=== PATIENT | male | born 1955 | race Caucasian/White ===

== ENCOUNTER 2018-11-08 21:55 | Inpatient (IN) ==
--- NOTE | 2018-11-09 00:09 | Internal Med History&Physical ---
<Freeman Chicas - Last Filed: 11/09/18 02:34> Date of Encounter: 11/09/18 Time of Encounter: 00:08 Internal Medicine - H&P: HPI Chief complaint: Left shoulder pain Admitted From: Intrahospital Transfer ([facility]) History of present illness: Mr. Lehman is a 63 year old [facility] patient with a past medical history of CAD status post 5 cardiac stents placed at [facility], COPD, CVA without residual deficits, hypertension, hyperlipidemia, and current tobacco dependence who presented to [facility] emergency room complaining of left-sided shoulder and arm pain. Patient describes difficulty bending his left arm secondary to pain. Vital signs revealed highest documented blood pressure 196/88, pulse 68, and EKG revealed mild [address] elevations in anterior septal leads V1 and V2 with preceding Q waves indicating old AL. Patient already took Aspirin 81 mg, Aggrenox, metoprolol, and Plavix at home prior to arrival to [facility]. Patient was treated with 1 inch nitroglycerin paste, Aspirin 162 mg 1, Hydralazine 10 mg IV 1, morphine 2 mg IV 1 and Zofran 4 mg IV 1, and was started on nitroglycerin drip prior to transfer to [facility]. Labs at [facility] revealed a CBC 7.3, hemoglobin 14.1, hematocrit 42.2, platelet count 215, sodium 140, potassium 1.5, chloride 103, CO2 29, BUN 14, creatinine 1.14, glucose 290, calcium 8.7, total bilirubin 0.03, albumin 3.6, PT 11.6, INR 0.99, and troponin level < 0.056. Chest x-ray revealed no acute pathology. Past Med Surg Social Fam HX - Past Medical History Medical history: COPD, coronary artery disease, CVA (4), diabetes, hyperlipidemia, hypertension, myocardial infarction, other Additional medical history: Spinal stimulator in place for sciatica - Past Surgical History Surgical History: angioplasty/stent (Cardiac stents 5), sinus surgery, tonsilectomy, other (Spinal stimulator) - Social History Smoking Status: Current every day smoker Packs per day: 3 Smokeless Tobacco Status: No Alcohol use: none Drug use: none Current living situation: Home, With Family - Family History Mother Living Status: Hx Family Cardiac Disorders: Yes (CAD, hypertension) Father Hx Family Cancer: Yes (Bone) Hx Family Endocrine Disorder: Yes ("Low blood sugars") Internal Medicine - H&P: Meds Albuterol Neb [Proventil Neb] 2.5 mg IH Q4HR PRN 08/09/17 [History] Aspirin 325 mg PO DAILY 08/09/17 [History] Aspirin/Dipyridamole [Aggrenox 25 mg-200 mg Capsule] 1 tab PO BID 08/09/17 [History] Atorvastatin Calcium [Lipitor] 40 mg PO HS 08/09/17 [History] Budesonide/Formoterol 160/4.5 [Symbicort 160/4.5] 2 puff IH BIDR 08/09/17 [History] Celecoxib [Celebrex] 200 mg PO BID 08/09/17 [History] Cetirizine HCl [All Day Allergy] 10 mg PO DAILY 08/09/17 [History] Clindamycin [Cleocin] 150 mg PO Q6HR #7 capsule 08/09/17 [Rx] Cyclobenzaprine [Flexeril] 10 mg PO BID PRN 08/09/17 [History] Docusate Sodium [Colace] 200 mg PO BID 08/09/17 [History] Ibuprofen [Motrin] 600 mg PO Q8HR #20 tab 08/09/17 [Rx] Insulin Glargine,Hum.rec.anlog [Lantus Solostar] 35 unit SQ BID 08/09/17 [History] Ipratropium [Atrovent Inhaler] 2 puff IH DAILY 08/09/17 [History] Lisinopril 2.5 mg PO DAILY 08/09/17 [History] Metformin HCl [Glucophage] 1,000 mg PO BID 08/09/17 [History] Metoclopramide [Reglan] 10 mg PO Q6HR 08/09/17 [History] Metoprolol XL (24 HR) Succ [Toprol XL] 25 mg PO DAILY 08/09/17 [History] NIFEdipine XL (24 HR) [Procardia XL] 30 mg PO DAILY 08/09/17 [History] Niacin [Niacor] 500 mg PO DAILY 08/09/17 [History] Omeprazole [PriLOSEC] 20 mg PO DAILY 08/09/17 [History] OxyCODONE Immed Rel [Roxicodone 5 MG] 5 mg PO Q4HR PRN #24 tablet 08/09/17 [Rx] Polyethylene Glycol 3350 [MiraLAX] 17 gm PO DAILY PRN 08/09/17 [History] Pregabalin [Lyrica] 100 mg PO BID 08/09/17 [History] SUMAtriptan Succinate [Imitrex] 100 mg PO AD PRN 08/09/17 [History] Saxagliptin HCl [Onglyza] 5 mg PO DAILY 08/09/17 [History] Tamsulosin [Flomax] 0.4 mg PO DAILY 08/09/17 [History] Topiramate [Topamax] 50 mg PO DAILY 08/09/17 [History] Allergy/AdvReac Type Severity Reaction Status Date / Time Varenicline [From Chantix] Allergy Nausea Verified 08/01/17 12:26 All Systems PM: A 10-system review of systems was performed and is negative for pertinent findings except as documented above in the HPI. - Constitutional Constitutional: no anorexia, no chills, no fatigue, no fever(s), no malaise, no weakness, no weight gain, no weight loss - EENT Eyes: blurry vision (Chronic), no diplopia Nose, mouth and throat: no sinus pain, no sore throat - Cardiovascular Cardiovascular ROS IM: no chest pain, no dyspnea, no dyspnea on exertion, no edema, no irregular heart rhythm, no lightheadedness, no palpitations, no syncop e - Respiratory Respiratory: no cough, no dyspnea, no dyspnea on exertion, no wheezing, no chest congestion - Gastrointestinal Gastrointestinal: no abdominal pain, no bloating, no diarrhea, no heartburn, no nausea, no vomiting - Genitourinary Genitourinary ROS male: no dysuria, no urinary frequency, no urinary urgency - Musculoskeletal Musculoskeletal ROS IM: myalgias (Left shoulder), no numbness, no tingling - Integumentary Integumentary IM: no new lesions, no rash, no jaundice - Neurological Neurological ROS: no numbness, no tingling, no weakness - Psychiatric Psychiatric: no anxiety, no depression - Endocrine Endocrine IM: no fatigue, no polydipsia, no polyphagia, no polyuria - Hematologic/Lymphatic Hematologic/Lymphatic: no easy bleeding, no easy bruising - Constitutional General appearance: Present: cooperative, A&O X 3, pleasant, no acute distress, answers questions appropriately Exam: Awake - Head Head exam: Present: atraumatic, normocephalic - Eye Eye exam: Present: EOMI, PERRL, conjuntiva pink, sclera anicteric Pupils: Present: PERRL - ENT ENT exam: Present: mucous membranes moist, normal oropharynx - Neck Neck exam general surgery: Present: supple, trachea midline. Absent: lymphadenopathy - Respiratory Respiratory exam: Present: CTAB. Absent: accessory muscle use, rales, rhonchi, wheezes - Cardiovascular Cardiovascular exam: Present: RRR, +S1, +S2. Absent: diastolic murmur, gallop, rubs, systolic murmur - GI/Abdominal GI/Abdominal exam: Present: normal bowel sounds, soft, no peritoneal signs. Absent: distended, guarding, tenderness - Extremities Exam Extremities exam: Present: normal capillary refill, normal inspection, warm, radial pulses palpable and symmetrical. Absent: calf tenderness, cyanotic, ped al edema, tenderness (No reproducible pain or tenderness with left shoulder or arm palpation) - Neurological Exam Neurological exam: Present: alert, CN II-XII intact, oriented X3, no focal deficits. Absent: pronater drift, facial droop, speech deficit - Psychiatric Psychiatric exam: Present: normal affect, normal mood - Skin Skin exam: Present: dry, intact, normal color, warm Internal Med - H&P Results - Labs CBC & Chem 7: 11/09/18 00:46 11/09/18 00:46 - EKG Data -: EKG Interpreted by Myself EKG shows normal: sinus rhythm (Sinus arrhythmia, first-degree AV block, no signs of ischemia) - EKG Data Prior EKG available for review: yes When compared to previous EKG: there are significant changes (Mild ST elevation in anterior septal leads V1 and V2 with preceding Q waves) - Assessment and plan (1) Hypertensive emergency Current Visit: Yes Status: Acute Assessment and plan: Patient presented to [facility] with blood pressure 217/98 complaining of left shoulder and arm pain Patient was started on nitroglycerin drip and transferred over to [facility] ST segment changes improved after blood pressure was lower Wean off nitroglycerin drip once systolic blood pressure less than 180 Hydralazine ordered prn systolic blood pressure greater than 170 Resume oral home home meds once cleared by cardiology (2) CAD (coronary artery disease) Current Visit: Yes Status: Chronic Assessment and plan: Patient with CAD status post cardiac stents 5 presented with hypertensive em ergency and initial EKG changes revealing mild [address] elevations in leads V1 and V2 with preceding Q waves indicating old AL [facility] physician discussed case with buffer operator, Dr. Farnsworth, who lorena mmended starting a heparin drip and transferring to [facility] for further evaluation. Repeat EKG at [facility] shows sinus arrhythmia with first-degree AV block and no signs of ischemia Initial troponins negative x2, Trend serial troponins Continue aspirin and statin. Cardiology consulted Qualifiers: Coronary Disease-Associated Artery/Lesion type: [place] artery [place] vs. transplanted heart: [place] heart Associated angina: with other forms of angina Qualified Code(s): I25.118 - Atherosclerotic heart disease of [place] coronary artery with other forms of angina pectoris (3) History of CVA (cerebrovascular accident) without residual deficits Current Visit: No Status: Chronic Assessment and plan: Patient has some residual cognitive impairment status post CVA but no extremity weakness Tobacco cessation and encouraged. Resume oral home home meds once cleared by cardiology (4) Hyperlipidemia Current Visit: No Status: Chronic Assessment and plan: Lipid panel reviewed. Continue statin Qualifiers: Hyperlipidemia type: unspecified Qualified Code(s): E78.5 - Hyperlipidemia, unspecified (5) Diabetes mellitus, type 2 Current Visit: Yes Status: Chronic Assessment and plan: Hemoglobin A1c level pending. Continue Accu-Cheks, low dose SSI, and Levemir 15 units BID while NPO (patient takes Levemir 45 units BID at home) Qualifiers: Diabetes mellitus nursing home insulin use: with nursing home use Diabetes erwin litus complication status: without complication Qualified Code(s): E11.9 - Type 2 diabetes mellitus without complications; Z79.4 - termite treater (current) use of insulin (6) Tobacco dependence Current Visit: Yes Status: Chronic Assessment and plan: Tobacco cessation. Hold nicotine products (7) DVT prophylaxis Current Visit: Yes Status: Acute Assessment and plan: Heparin drip - Time Spent With Patient Total time spent is greater than 50% in coordination of care (as documented) at patient's floor/unit and/or counseling patient: <Lazaro Harris - Last Filed: 11/09/18 02:59> Date of Encounter: 11/09/18 Time of Encounter: 01:50 - Cardiovascular Cardiovascular ROS IM: chest pain, no dyspnea, no dyspnea on exertion - Respiratory Respiratory: no cough, no chest congestion - Genitourinary Genitourinary ROS male: no dysuria, no flank pain - Neurological Neurological ROS: memory loss, no focal weakness, no frequent falls, no headache(s) - Constitutional General appearance: Present: A&O X 3, pleasant, no acute distress - Eye Eye exam: Present: EOMI, PERRL. Absent: scleral icterus - ENT ENT exam: Present: mucous membranes moist, normal oropharynx - Respiratory Respiratory exam: Present: CTAB. Absent: chest wall tenderness, rales, rhonchi, wheezes - Cardiovascular Cardiovascular exam: Present: RRR, +S1, +S2. Absent: diastolic murmur, systolic murmur - GI/Abdominal GI/Abdominal exam: Present: normal bowel sounds, soft. Absent: tenderness - Extremities Exam Extremities exam: Present: normal capillary refill, warm, radial pulses palpable and symmetrical. Absent: calf tenderness - Back Exam Back exam: Absent: CVA tenderness (L), CVA tenderness (R) - Neurological Exam Neurological exam: Present: alert, CN II-XII intact, oriented X3, no focal deficits - Psychiatric Psychiatric exam: Present: normal affect, normal mood - Skin Skin exam: Present: dry, intact, warm Internal Med - H&P Results - Labs CBC & Chem 7: 11/09/18 00:46 11/09/18 00:46 Labs: Short CBC 11/09/18 Range/Units 00:46 WBC 9.0 (4.3-11.1) K/mcL Hgb 13.7 (12.9-16.9) g/dL Hct 41.0 (37.5-50.1) % Plt Count 208 (140-400) K/mcL Neutrophils # 5.3 (1.6-8.9) K/mcL BMP 11/09/18 00:46 Sodium 136 Potassium 4.3 Chloride 105 Carbon Dioxide 27 BUN 13 Creatinine 0.80 Glucose 265 H Calcium 9.1 Cardiac Enzymes 11/09/18 Range/Units 00:46 Troponin I < 0.03 (< 0.04) ng/mL Liver Function 11/09/18 Range/Units 00:46 Total Bilirubin 0.6 (0.3-1.0) mg/dL AST 8 L (13-39) Units/L ALT 7 (7-52) Units/L Alkaline Phosphatase 87 (34-104) Units/L Albumin 4.1 (3.5-5.7) g/dL - Time Spent With Patient Total time spent is greater than 50% in coordination of care (as documented) at patient's floor/unit and/or counseling patient: - Attending Attestation I discussed the patient [place], past medical history, review of systems, lab data, EKG findings, and [facility] records with Dr. Chicas. I then saw and examined patient independently as well. I also discussed the patient case at length with the ER physician at [facility]. Patient was suffering from hypertensive emergency with resultant chest pain, weakness, and nausea. Blood pressure was in excess of 200 systolic. There was initial concern that he had ST elevation in his EKG. However, his EKG was read by Dr. Annacardiologist at [facility]. This was not deemed a STEMI. Furthermore, I also requested our card iologists to review the EKG and there was no concern for STEMI as reported to me. Dr. Farnsworth recommended starting heparin drip. However, given his hypertensive emergency, I deferred starting heparin drip until his blood pressure stabilized. Prior to transport, his blood pressure was 178/90's. Pr esently it is much better controlled. We have initiated heparin drip upon arrival, and we will proceed with further cardiac workup while managing blood pressure. Because of his extensive coronary artery disease and presentation with chest pain, we will consult cardiology and order ECHO in the morning. Patient and both verbalize understanding of the plan. Other than my comments above and noted exam findings, I agree with Dr. Chicas's assessment and plan.
[2018-11-09] MEDS ORDERED: Dextrose Gel 15 GM/37.5 ML TUBE PO PRN ×2 (00:17)
[2018-11-09] MEDS ORDERED: D5% in Water 1,000 ML IVC PRN (00:17)
[2018-11-09] MEDS ORDERED: Ondansetron 4 MG/2 ML VIAL IVP PRN (00:17)
[2018-11-09] MEDS ORDERED: Acetaminophen 325 MG TABLET PO PRN (00:17)
[2018-11-09] MEDS ORDERED: *HR* Heparin 5,000 UNIT/ML VIAL IVP PRN ×2 (00:17)
[2018-11-09] MEDS ORDERED: *HR* Dextrose 50 % in Water (Syg) 50 ML SYRINGE IVP PRN (00:17)
[2018-11-09] MEDS ORDERED: Naloxone 0.4 MG/ML INJ IVP PRN (00:17)
[2018-11-09] MEDS ORDERED: *HR* Heparin 5,000 UNIT/ML VIAL IVP ONE (00:17)
[2018-11-09] MEDS ORDERED: Nitroglycerin 25 MG/250 ML INFUS..BTL IVC SCH ×2 (00:30→02:37)
[2018-11-09 01:02] LABS: Basophils # 0.1 K/mcL (0.0-0.2); Basophils % 0.7 %; Eosinophils # 0.2 K/mcL (0.0-0.6); Eosinophils % 2.3 %; Hemoglobin 13.7 g/dL (12.9-16.9); Immature Granulocytes % 0.3 % (0-4); Lymphocytes # 2.8 K/mcL (0.6-4.6); Mean Corpuscular HGB Conc 33.4 g/dL (31.6-35.5); Mean Corpuscular Hemoglobin 32.1 pg (28.0-33.3); Mean Platelet Volume 10.7 fL (9.4-12.4); Monocytes # 0.6 K/mcL (0.0-1.3); Monocytes % 6.8 %; Neutrophils # 5.3 K/mcL (1.6-8.9); Platelet Count 208 K/mcL (140-400); Red Blood Count 4.27 M/mcL (4.19-5.50); Red Cell Distribution Width 12.3 % (11.5-14.5); Segmented Neutrophils % 58.9 %
[2018-11-09 01:10] LABS: INR 0.9; Prothrombin Time 10.6 Seconds (9.4-12.1)
[2018-11-09 01:12] LABS: Activated Partial Thrombo Time 28.7 Seconds (26.0-36.0)
[2018-11-09 01:25] LABS: Alanine Aminotransferase 7 Units/L (7-52); Albumin 4.1 g/dL (3.5-5.7); Albumin/Globulin Ratio 1.9 (1.1-2.2); Alkaline Phosphatase 87 Units/L (34-104); Aspartate Amino Transferase 8 Units/L (13-39); BUN/Creatinine Ratio 16 (6-26); Bilirubin,Total 0.6 mg/dL (0.3-1.0); Blood Urea Nitrogen 13 mg/dL (8-23); Calcium 9.1 mg/dL (8.6-10.3); Carbon Dioxide 27 mEq/L (23-29); Chloride 105 mEq/L (98-107); Chol/HDL Ratio 4.4 (0-4.9); Cholesterol 158 mg/dL (< 200); Globulin 2.2 g/dL (2.4-3.5); Glucose 265 mg/dL (70-105); HDL Cholesterol 36 mg/dL (40-59); LDL Cholesterol,Calculated 94 mg/dL (0-99); Magnesium 1.8 mg/dL (1.6-2.6); Osmolality,Calculated 291 (280-300); Phosphorous 2.5 mg/dL (2.7-4.5); Potassium 4.3 mEq/L (3.5-5.1); Sodium 136 mEq/L (136-145); Total Protein 6.3 g/dL (6.4-8.9); Triglycerides 140 mg/dL (< 150); eGFR For Non-African Americans > 60 (> 60)
[2018-11-09] MEDS: Heparin 25,000 UNIT/500 ML D5W 25,000 UNIT/500 ML BAG IVC SCH (01:36)
[2018-11-09 01:37] LABS: Thyroid Stimulating Hormone 1.478 mcIU/mL (0.340-5.600)
[2018-11-09] MEDS: Insulin LISPRO 300 UNITS/3 ML VIAL SQ SCH ×4 (08:41→23:58)
[2018-11-09 09:51] LABS: Estimated Average Glucose 148 mg/dl; Hemoglobin A1C 6.8 %
[2018-11-09] MEDS ORDERED: NIFEdipine XL (24 HR) 30 MG TAB.ER.24 PO SCH (10:15)
[2018-11-09] MEDS ORDERED: Metoprolol XL (24 HR) Succ 25 MG TAB.ER.24H PO SCH (10:15)
[2018-11-09] MEDS: Aspirin 81 MG TAB.CHEW PO SCH (10:46)
[2018-11-09] MEDS: Nicotine 21 MG PATCH.TD24 TD SCH ×3 (10:46→13:37)
[2018-11-09] MEDS: Insulin DETEMIR 100 UNIT/ML X5UNITS SQ SCH ×3 (11:12→20:13)
--- NOTE | 2018-11-09 11:19 | Internal Med Progress Note ---
Hospitalist Progress Note - Encounter Date of Encounter: 11/09/18 Time of Encounter: 09:00 - Subjective Interval History: Patient denies chest pain. Still complaining of left arm pain but said it is significantly improved. Yesterday patient cannot move the arm at all but now he come move arm freely. Vitals are stable. Denies shortness of breasts on n ausea. - Exam Vitals: Temp Pulse Resp BP Pulse Ox 98.1 F 72 16 173/83 95 11/09/18 07:37 11/09/18 10:53 11/09/18 07:37 11/09/18 10:53 11/09/18 10:53 Exam: Pt is AAO x 3, in NAD HEENT: NC/AT, PERRL Neck: Supple, no JVD, no LAD Lungs: CTA b/l Heart: S1S2, RRR Abd: Soft, nontender, BS present Ext: ROM wnl, no pedal edema, left arm mild tenderness Neuro: No focal deficit - Assessment and Plan (1) Left arm pain Current Visit: Yes Status: Acute Assessment and Plan: Patient has history of CAD with stent placed. Complain left arm pain, in [facility], EKG shows suspected ST elevation. Need to rule out ACS - Continue cardiac monitoring - Track 3 sets of troponin - Cardiology was called by [facility] ER, recommend heparin drip. Patient is on heparin drip now, waiting for cardiology further recommendation. (2) DVT prophylaxis Current Visit: Yes Status: Acute Assessment and Plan: Patient is on heparin drip (3) Hypertensive emergency Current Visit: Yes Status: Acute Assessment and Plan: BP is well controlled now on nitroglycerin drip. Will resume home medication and gradually tapered down nitroglycerin drip. (4) CAD (coronary artery disease) Current Visit: Yes Status: Chronic Assessment and Plan: Management as above (5) Diabetes mellitus, type 2 Current Visit: Yes Status: Chronic Assessment and Plan: Continue basal and sliding scale insulin coverage (6) Tobacco dependence Current Visit: Yes Status: Chronic Assessment and Plan: Smoking cessation education. Place patient on nicotine patch. (7) History of CVA (cerebrovascular accident) without residual deficits Current Visit: No Status: Chronic Assessment and Plan: Continue home medications of antiplatelet and statin when patient's home medication list is verified (8) Hyperlipidemia Current Visit: No Status: Chronic Assessment and Plan: We will continue home medications - Time Spent with Patient Total time spent is greater than 50% in coordination of care (as documented) at patient's floor/unit and/or counseling patient: 40 minutes Greater than 35 minutes Plan of Care Discussed with: patient Internal Medicine: Result - Labs CBC & Chem 7: 11/09/18 00:46 11/09/18 00:46 Labs: Short CBC 11/09/18 Range/Units 00:46 WBC 9.0 (4.3-11.1) K/mcL Hgb 13.7 (12.9-16.9) g/dL Hct 41.0 (37.5-50.1) % Plt Count 208 (140-400) K/mcL Neutrophils # 5.3 (1.6-8.9) K/mcL BMP 11/09/18 00:46 Sodium 136 Potassium 4.3 Chloride 105 Carbon Dioxide 27 BUN 13 Creatinine 0.80 Glucose 265 H Calcium 9.1 Cardiac Enzymes 11/09/18 11/09/18 Range/Units 00:46 08:18 Troponin I < 0.03 < 0.03 (< 0.04) ng/mL Liver Function 11/09/18 Range/Units 00:46 Total Bilirubin 0.6 (0.3-1.0) mg/dL AST 8 L (13-39) Units/L ALT 7 (7-52) Units/L Alkaline Phosphatase 87 (34-104) Units/L Albumin 4.1 (3.5-5.7) g/dL - ABG Interpretation ABG results: PT/INR, D-dimer PT 10.6 Seconds (9.4-12.1) 11/09/18 00:46 Consult Discharge Plan - Plan Referrals: Caitlin Koch, GENERAL PRODUCTION WORKER [Primary Care Provider] - (4) CAD (coronary artery disease) Qualifiers: Coronary Disease-Associated Artery/Lesion type: [place] artery [place] vs. transplanted heart: [place] heart Associated angina: with other forms of angina Qualified Code(s): I25.118 - Atherosclerotic heart disease of [place] coronary artery with other forms of angina pectoris (5) Diabetes mellitus, type 2 Qualifiers: Diabetes mellitus oil heaterman insulin use: with assisted use Diabetes mellitus complication status: without complication Qualified Code(s): E11.9 - Type 2 diabetes mellitus without complications; Z79.4 - retirement (current) use of insulin (8) Hyperlipidemia Qualifiers: Hyperlipidemia type: unspecified Qualified Code(s): E78.5 - Hyperlipidemia, unspecified
--- NOTE | 2018-11-09 11:32 | Cardiology Consult Note ---
<Howard Layton R - Last Filed: 11/09/18 11:29> Date of Encounter: 11/09/18 Time of Encounter: 11:29 Assessment and Plan (2) Hypertensive emergency Current Visit: Yes Status: Acute BP currently 180s/100. On nitro gtt at 5mcg/min. On Toprol XL 25mg daily, Procardia 30mg daily. Will increase Toprol XL to 50mg daily and add ACEi--Lisinopril 5mg daily. Was given IV Hydralazine 10mg this AM. (3) CAD (coronary artery disease) Current Visit: Yes Status: Chronic Qualifiers: Coronary Disease-Associated Artery/Lesion type: [place] artery [place] vs. transplanted heart: [place] heart Associated angina: with other forms of angina Qualified Code(s): I25.118 - Atherosclerotic heart disease of [place] coronary artery with other forms of angina pectoris (4) Tobacco dependence Current Visit: Yes Status: Chronic Smoking cessation counseling given. (5) Chest pain Current Visit: Yes Status: Acute Presenting symptom was left shoulder pain, worse with movement, which seems musculoskeletal. However, pt developed chest pain this AM at rest, described as heaviness, now resolved, in setting of hypertensive urgency with BP 180s/100s. Currently on nitro gtt at 5mcg/min. Will attempt to wean off. Troponin negative x 2 at [facility], was negative at [facility]. ECG no acute findings. On heparin gtt--will discuss with Dr. Rodriguez on stopping. TTE to evaluate structure and function. Hx of CAD with reportedly 5 stents. Most recent LHC was 5 years ago with PCI. He denies any stress test or LHC since then. Has not followed with cardiology in years. Continues to smoke 2-2 1/2 PPD. Given above, recommend stress test to further evaluate for ischemia. Plan on stress test tomorrow AM. Continue to follow. Qualifiers: Chest pain type: unspecified Qualified Code(s): R07.9 - Chest pain, unspecified (6) Left arm pain Current Visit: Yes Status: Acute As above. Discussion w patient/family: The assessment and plan as outlined above was discussed with the patient and/or family members who expressed understanding and agreement. All questions were answered. Thank you for involving us in the care of your patient. Please call with any questions. I will discuss all the above with Dr. Rodriguez and make changes as necessary. History of Present Illness Consult date: 11/09/18 Consult reason: chest pain Chief complaint: chest pain, left shoulder pain History of present illness: Mr. Lehman is a 63 year old male with PMH of CAD s/p PCI (reportedly 5) placed at [facility], COPD, CVA without residual deficits, hypertension, hyperlipidemia, and current tobacco dependence (2PPD) who presented to [facility] ED complaining of left-sided shoulder and arm pain. Patient describes difficulty bending his left arm secondary to pain. He states the pain started at rest, was worse with moving his arm. Hypertensive urgency with BP >200 systolic. Troponin negative at [facility] and negative x 2 at [facility]. This AM pt developed chest pain/heaviness, now resolved. He states he has not seen a beef grinder in a few years. BP 180s/100 at bedside. Cardiology consulted for further recs. Past Med Surg Social Fam HX - Past Medical History Medical history: COPD, coronary artery disease, CVA (4), diabetes, hyperlipidemia, hypertension, myocardial infarction, other Additional medical history: Spinal stimulator in place for sciatica Psychiatric history: anxiety, bipolar, depression - Past Surgical History Surgical History: angioplasty/stent (Cardiac stents 5), sinus surgery, tonsilectomy, other (Spinal stimulator) Additional surgical history: 5-stents, exploratory sinus, spinal cord stimulator for back pain - Social History Smoking Status: Current every day smoker Packs per day: 3 Smokeless Tobacco Status: No Alcohol use: none Drug use: none - Family History Father Hx Family Cancer: Yes (Bone) Hx Family Endocrine Disorder: Yes ("Low blood sugars") Mother Living Status: Hx Family Cardiac Disorders: Yes (CAD, hypertension) Medications and Allergies Albuterol Neb [Proventil Neb] 2.5 mg IH Q4HR PRN 08/09/17 [History] Aspirin/Dipyridamole [Aggrenox 25 mg-200 mg Capsule] 1 tab PO BID 08/09/17 [History] Atorvastatin Calcium [Lipitor] 40 mg PO HS 08/09/17 [History] Budesonide/Formoterol 160/4.5 [Symbicort 160/4.5] 2 puff IH BIDR 08/09/17 [History] Celecoxib [Celebrex] 200 mg PO BID 08/09/17 [History] Cetirizine HCl [All Day Allergy] 10 mg PO DAILY 08/09/17 [History] Clindamycin [Cleocin] 150 mg PO Q6HR #7 capsule 08/09/17 [Rx] Cyclobenzaprine [Flexeril] 10 mg PO BID PRN 08/09/17 [History] Ibuprofen [Motrin] 600 mg PO Q8HR #20 tab 08/09/17 [Rx] Insulin Glargine,Hum.rec.anlog [Lantus Solostar] 35 unit SQ BID 08/09/17 [History] Ipratropium [Atrovent Inhaler] 2 puff IH DAILY 08/09/17 [History] Metformin HCl [Glucophage] 1,000 mg PO BID 08/09/17 [History] Metoclopramide [Reglan] 10 mg PO Q6HR 08/09/17 [History] Metoprolol XL (24 HR) Succ [Toprol XL] 25 mg PO DAILY 08/09/17 [History] NIFEdipine XL (24 HR) [Procardia XL] 30 mg PO DAILY 08/09/17 [History] Omeprazole [PriLOSEC] 20 mg PO DAILY 08/09/17 [History] RX: Aspirin 325 mg PO DAILY 08/09/17 [History] RX: Docusate Sodium [Colace] 200 mg PO BID 08/09/17 [History] RX: Lisinopril 2.5 mg PO DAILY 08/09/17 [History] RX: Niacin [Niacor] 500 mg PO DAILY 08/09/17 [History] RX: OxyCODONE Immed Rel [Roxicodone 5 MG] 5 mg PO Q4HR PRN #24 tablet 08/09/17 [Rx] RX: Polyethylene Glycol 3350 [MiraLAX] 17 gm PO DAILY PRN 08/09/17 [History] RX: Pregabalin [Lyrica] 100 mg PO BID 08/09/17 [History] SUMAtriptan Succinate [Imitrex] 100 mg PO AD PRN 08/09/17 [History] Saxagliptin HCl [Onglyza] 5 mg PO DAILY 08/09/17 [History] Tamsulosin [Flomax] 0.4 mg PO DAILY 08/09/17 [History] Topiramate [Topamax] 50 mg PO DAILY 08/09/17 [History] Allergy/AdvReac Type Severity Reaction Status Date / Time Varenicline [From Chantix] Allergy Nausea Verified 08/01/17 12:26 All Systems Review: The remainder of the systems were reviewed and are negative - Cardiovascular Cardiovascular: as per HPI, chest pain at rest, dyspnea on exertion, radiating jaw, neck or arm pain Physical Examination Vital Signs, Last 4 Hours Temp Pulse Resp BP Pulse Ox 11/09/18 10:53 72 173/83 95 11/09/18 09:18 82 162/89 11/09/18 08:58 75 11/09/18 07:37 98.1 F 68 16 152/83 93 Vital Signs Temp Pulse Resp BP Pulse Ox 11/09/18 10:53 72 173/83 95 11/09/18 09:18 82 162/89 11/09/18 08:58 75 11/09/18 07:37 98.1 F 68 16 152/83 93 11/09/18 07:00 71 152/83 95 11/09/18 06:00 160/80 11/09/18 05:00 163/98 11/09/18 04:00 99.0 F 68 16 143/78 94 11/09/18 03:00 137/72 11/09/18 02:20 137/77 11/09/18 01:21 121/79 Intake and Output 11/08/18 11/09/18 11/09/18 23:59 07:59 15:59 Intake Total 173 / 173 Balance 173 / 173 Intake: IV Fluids 173 / 173 Heparin 25,000 UNIT/500 ML D5W 128 / 128 25,000 unit In 500 ml @ 12 UNIT /KG/HR 18 mls/hr IVC .Q24H [facility] Rx#:[id number] Nitroglycerin Premix 25 MG/250 45 / 45 ML 25 mg In 250 ml @ 5 MCG/MIN 3 mls/hr IVC .Q24H [facility] Rx#: [id number] Oral 0 / 0 Other: Meal Breakfast Percent of Meal Consumed 0% Weight 75 kg Blood Glucose* 206 Patient Weight 11/09/18 23:59 Weight 75 kg General: Conversant, No Apparent Distress HEENT: Atraumatic, Normocephaly, Mucus Membranes Moist Neck: No JVD, Normal carotid pulses Cardiac: Reg Rate and Rhythm, Normal S1 and S2, No Murmur Lungs: Normal Breath Sounds, No Wheeze, Rales, Rhonchi Neuro: Alert and responsive, No focal deficits noted Abdomen: Soft, Non-Tender Skin: No rashes noted on visualized skin Musculoskeletal: No Chest Wall Tenderness Extremities: No Clubbing, No Cyanosis, No Edema, Normal Pulses Results 11/09/18 00:46 11/09/18 00:46 Lab Results 11/09/18 11/09/18 11/09/18 00:46 00:46 00:46 WBC 9.0 Hgb 13.7 Hct 41.0 Plt Count 208 INR 0.9 APTT 28.7 Sodium 136 Potassium 4.3 Chloride 105 Carbon Dioxide 27 BUN 13 Creatinine 0.80 Glucose 265 H Calcium 9.1 Magnesium 1.8 Total Bilirubin 0.6 AST 8 L ALT 7 Alkaline Phosphatase 87 Troponin I TSH 1.478 11/09/18 11/09/18 00:46 08:18 WBC Hgb Hct Plt Count INR APTT Sodium Potassium Chloride Carbon Dioxide BUN Creatinine Glucose Calcium Magnesium Total Bilirubin AST ALT Alkaline Phosphatase Troponin I < 0.03 < 0.03 TSH Short CBC 11/09/18 Range/Units 00:46 WBC 9.0 (4.3-11.1) K/mcL Hgb 13.7 (12.9-16.9) g/dL Hct 41.0 (37.5-50.1) % Plt Count 208 (140-400) K/mcL Neutrophils # 5.3 (1.6-8.9) K/mcL BMP 11/09/18 Range/Units 00:46 Sodium 136 (136-145) mEq/L Potassium 4.3 (3.5-5.1) mEq/L Chloride 105 (98-107) mEq/L Carbon Dioxide 27 (23-29) mEq/L BUN 13 (8-23) mg/dL Creatinine 0.80 (0.70-1.30) mg/dL Glucose 265 H (70-105) mg/dL Calcium 9.1 (8.6-10.3) mg/dL Cardiac Enzymes 11/09/18 11/09/18 Range/Units 08:18 00:46 Troponin I < 0.03 < 0.03 (< 0.04) ng/mL Liver Function 11/09/18 Range/Units 00:46 Total Bilirubin 0.6 (0.3-1.0) mg/dL AST 8 L (13-39) Units/L ALT 7 (7-52) Units/L Alkaline Phosphatase 87 (34-104) Units/L Albumin 4.1 (3.5-5.7) g/dL Active Medications Acetaminophen (Tylenol) 650 mg PO Q6HR PRN PRN Reason: Mild Pain/Fever Stop: 05/11/19 00:18 Aspirin (Aspirin) 81 mg PO DAILY [facility] Stop: 05/11/19 09:01 Last Admin: 11/09/18 10:46 Dose: 81 mg Atorvastatin Calcium (Lipitor) 40 mg PO HS [facility] Stop: 05/11/19 21:01 Budesonide/Formoterol Fumarate (Symbicort) 2 puff IH BIDR [facility]; Protocol Stop: 05/11/19 22:01 Dextrose/Water (Dextrose 50% (Syg)) 25 ml IVP AD PRN PRN Reason: Hypoglycemia Stop: 05/11/19 00:18 Docusate Sodium (Colace) 100 mg PO BID PRN PRN Reason: Constipation Stop: 05/11/19 09:01 Glucagon (Glucagen) 1 mg IM ONCE PRN PRN Reason: Hypoglycemia Stop: 05/11/19 00:18 Glucose (Gluctose) 15 gm PO ONCE PRN PRN Reason: Hypoglycemia Stop: 05/11/19 00:18 Glucose (Gluctose) 30 gm PO ONCE PRN PRN Reason: Hypoglycemia Stop: 05/11/19 00:18 Heparin Sodium (Porcine) (Heparin) 4,000 unit IVP Q6HR PRN PRN Reason: SEE COMMENTS Stop: 05/11/19 00:18 Heparin Sodium (Porcine) (Heparin) 2,000 unit IVP Q6H PRN PRN Reason: SEE COMMENTS Stop: 05/11/19 00:18 Hydralazine HCl (Hydralazine) 10 mg IVP Q6HR PRN PRN Reason: Hypertension SBP >170 Stop: 05/11/19 02:04 Last Admin: 11/09/18 11:18 Dose: 10 mg Dextrose (Dextrose 5%) 1,000 mls @ 100 mls/hr IVC .Q10H PRN PRN Reason: HYPOGLYCEMIA Stop: 05/11/19 00:18 Heparin Sodium/Dextrose (Heparin 25,000 Unit/500 Ml D5w) 25,000 unit in 500 mls @ 18 mls/hr IVC .Q24H [facility]; Protocol Stop: 05/11/19 00:31 Last Titration: 11/09/18 08:45 Dose: 12 unit/kg/hr, 18 mls/hr Nitroglycerin (Nitroglycerin Premix 25 Mg/250 Ml) 25 mg in 250 mls @ 3 mls/hr IVC .Q24H [facility]; Protocol Stop: 05/11/19 00:31 Insulin Detemir (Levemir) 15 unit SQ BID [facility] Stop: 05/11/19 09:01 Last Admin: 11/09/18 11:12 Dose: Not Given Insulin Human Lispro (Humalog) 0 units SQ Q6HR [facility]; Protocol Stop: 05/11/19 06:01 Last Admin: 11/09/18 08:41 Dose: Not Given Metoprolol Succinate (Toprol Xl) 25 mg PO DAILY [facility] Stop: 05/11/19 10:16 Last Admin: 11/09/18 10:46 Dose: 25 mg Naloxone HCl (Narcan) 0.4 mg IVP Q2MIN PRN PRN Reason: SEE COMMENTS Stop: 05/11/19 00:18 Nicotine (Nicoderm) 21 mg TD DAILY [facility]; Protocol Stop: 05/11/19 10:16 Last Admin: 11/09/18 11:16 Dose: Not Given Nifedipine (Procardia Xl) 30 mg PO DAILY [facility]; Protocol Stop: 05/11/19 10:16 Last Admin: 11/09/18 10:46 Dose: 30 mg Ondansetron HCl (Zofran) 4 mg IVP Q6HR PRN PRN Reason: Nausea And Vomiting Stop: 05/11/19 00:18 - EKG Interpretation EKG results cardiology: personally reviewed, other (12 hr tele AVG HR 70, SR) Consult Discharge Plan - Plan Referrals: Caitlin Koch CNP [Primary Care Provider] - <Ant Rodriguez - Last Filed: 11/10/18 12:15> Date of Encounter: 11/10/18 - Attending Attestation I have personally performed a face to face evaluation on this patient. I have reviewed and agree with the documented findings and care plan as documented by the LOCOMOTIVE ENGINEER. History and Exam by me shows: 63-year-old patient with history of CAD, uncontrolled hypertension, current everyday smoker presenting with atypical chest pain. He has multiple CAD risk factors. I agree with pharmacological stress test with nuclear imaging. He needs better blood pressure control. Needs to quit smoking. Thanks, Ant Rodriguez MD FAC Assessment and Plan Discussion w patient/family: The assessment and plan as outlined above was discussed with the patient and/or family members who expressed understanding and agreement. All questions were answered. Thank you for involving us in the care of your patient. Please call with any questions. History of Present Illness History of present illness: Mr. Lehman is a 63 year old male All Systems Review: The remainder of the systems were reviewed and are negative Physical Examination Vital Signs, Last 4 Hours Temp Pulse Resp BP Pulse Ox 11/10/18 11:19 98.7 F 67 18 158/103 93 11/10/18 10:16 16 94 11/10/18 09:38 96 Results 11/10/18 03:48 11/10/18 03:48 Lab Results 11/09/18 11/10/18 11/10/18 12:38 03:48 03:48 WBC 6.2 Hgb 13.4 Hct 39.4 Plt Count 185 Sodium 138 Potassium 3.8 Chloride 108 H Carbon Dioxide 26 BUN 14 Creatinine 0.68 L Glucose 171 H Calcium 9.0 Magnesium 1.9 Troponin I < 0.03
[2018-11-09] MEDS ORDERED: Metoprolol XL (24 HR) Succ 25 MG TAB.ER.24H PO ONE (11:41)
[2018-11-09] MEDS ORDERED: Perflutren Lipid Microsphere 1.3 ML in 0.9 % Sodium Chloride 8.7 ML IVP ONE (13:45)
[2018-11-09] MEDS: Budesonide/Formoterol 160/4.5 1 PUFF INH IH SCH (21:27)
[2018-11-10] MEDS: Heparin 25,000 UNIT/500 ML D5W 25,000 UNIT/500 ML BAG IVC SCH (04:00)
[2018-11-10 04:03] LABS: Basophils # 0.1 K/mcL (0.0-0.2); Eosinophils # 0.2 K/mcL (0.0-0.6); Hematocrit 39.4 % (37.5-50.1); Hemoglobin 13.4 g/dL (12.9-16.9); Immature Granulocytes % 0.2 % (0-4); Lymphocytes # 2.8 K/mcL (0.6-4.6); Lymphocytes % 45.5 %; Mean Corpuscular Hemoglobin 32.3 pg (28.0-33.3); Mean Corpuscular Volume 94.9 fL (83.0-100.0); Mean Platelet Volume 10.7 fL (9.4-12.4); Monocytes # 0.4 K/mcL (0.0-1.3); Monocytes % 7.1 %; Neutrophils # 2.7 K/mcL (1.6-8.9); Platelet Count 185 K/mcL (140-400); Red Blood Count 4.15 M/mcL (4.19-5.50); Red Cell Distribution Width 12.3 % (11.5-14.5); Segmented Neutrophils % 43.2 %
[2018-11-10 04:23] LABS: BUN/Creatinine Ratio 21 (6-26); Blood Urea Nitrogen 14 mg/dL (8-23); Carbon Dioxide 26 mEq/L (23-29); Chloride 108 mEq/L (98-107); Glucose 171 mg/dL (70-105); Magnesium 1.9 mg/dL (1.6-2.6); Osmolality,Calculated 291 (280-300); Potassium 3.8 mEq/L (3.5-5.1); Sodium 138 mEq/L (136-145); eGFR For Non-African Americans > 60 (> 60)
[2018-11-10] MEDS ORDERED: Regadenoson 0.4 MG/5 ML SYRINGE IVP ONE (06:13)
[2018-11-10] MEDS ORDERED: NIFEdipine XL (24 HR) 30 MG TAB.ER.24 PO SCH (09:00)
[2018-11-10] MEDS ORDERED: Metoprolol XL (24 HR) Succ 25 MG TAB.ER.24H PO SCH (09:00)
[2018-11-10] MEDS: Insulin LISPRO 300 UNITS/3 ML VIAL SQ SCH ×2 (09:48→12:53)
[2018-11-10] MEDS: Aspirin 81 MG TAB.CHEW PO SCH (09:58)
[2018-11-10] MEDS: Budesonide/Formoterol 160/4.5 1 PUFF INH IH SCH (10:16)
[2018-11-10] MEDS: Insulin DETEMIR 100 UNIT/ML X5UNITS SQ SCH (10:39)
--- NOTE | 2018-11-10 11:33 | Internal Med Progress Note ---
Hospitalist Progress Note - Encounter Date of Encounter: 11/10/18 Time of Encounter: 09:00 - Subjective Interval History: Patient denies chest pain. Left arm pain has significantly improved. Vitals are stable. Denies shortness of breasts on nausea. Had stress test today, positive, plan for LHC tomorrow. - Exam Vitals: Temp Pulse Resp BP Pulse Ox 98.7 F 67 18 158/103 93 11/10/18 11:19 11/10/18 11:19 11/10/18 11:19 11/10/18 11:19 11/10/18 11:19 Exam: Pt is AAO x 3, in NAD HEENT: NC/AT, PERRL Neck: Supple, no JVD, no LAD Lungs: CTA b/l Heart: S1S2, RRR Abd: Soft, nontender, BS present Ext: ROM wnl, no pedal edema, left arm mild tenderness Neuro: No focal deficit - Assessment and Plan (1) Left arm pain Current Visit: Yes Status: Acute Assessment and Plan: 3 sets of troponin negative. ACS is ruled out. Most likely muscular pain, pain is significantly improved. (2) DVT prophylaxis Current Visit: Yes Status: Acute Assessment and Plan: Heparin sc (3) Hypertensive emergency Current Visit: Yes Status: Acute Assessment and Plan: BP is controlled now will po medication, off nitroglycerin drip. Will further adjusted home medication to get better BP control. Patient has history of CVA, importance of BP control discussed with patient and family, patient said he has BP machine at home and will monitor closely by himself or family (4) CAD (coronary artery disease) Current Visit: Yes Status: Chronic Assessment and Plan: Has a history of CAD S/P stent. Stress test positive. Plan for LHC. Further management will follow cardiology recommendations (5) Diabetes mellitus, type 2 Current Visit: Yes Status: Chronic Assessment and Plan: Continue basal and sliding scale insulin coverage (6) Tobacco dependence Current Visit: Yes Status: Chronic Assessment and Plan: Smoking cessation education. Place patient on nicotine patch. (7) History of CVA (cerebrovascular accident) without residual deficits Current Visit: No Status: Chronic Assessment and Plan: Continue home medications of antiplatelet and statin (8) Hyperlipidemia Current Visit: No Status: Chronic Assessment and Plan: We will continue home medications - Time Spent with Patient Total time spent is greater than 50% in coordination of care (as documented) at patient's floor/unit and/or counseling patient: 30 minutes 25 - 35 minutes Plan of Care Discussed with: patient Internal Medicine: Result - Labs CBC & Chem 7: 11/10/18 03:48 11/10/18 03:48 Labs: Short CBC 11/10/18 Range/Units 03:48 WBC 6.2 (4.3-11.1) K/mcL Hgb 13.4 (12.9-16.9) g/dL Hct 39.4 (37.5-50.1) % Plt Count 185 (140-400) K/mcL Neutrophils # 2.7 (1.6-8.9) K/mcL BMP 11/10/18 03:48 Sodium 138 Potassium 3.8 Chloride 108 H Carbon Dioxide 26 BUN 14 Creatinine 0.68 L Glucose 171 H Calcium 9.0 Cardiac Enzymes 11/09/18 Range/Units 12:38 Troponin I < 0.03 (< 0.04) ng/mL - ABG Interpretation ABG results: PT/INR, D-dimer PT 10.6 Seconds (9.4-12.1) 11/09/18 00:46 - Impressions Impressions Echocardiogram 11/09/18 11:41 Impressions: Technically sub-optimal due to poor echocardiographic windows. LVEF 60-65%. Mild concentric left ventricular hypertrophy. Normal left ventricular diastolic function. Normal right ventricular structure and function. Unable to estimate RVSP due to lack of TR jet. No significant valvular dysfunction Left Ventricular Wall Motion: Rest Echo Findings All wall segments showed normal motion. Findings: Study Quality * Technically sub-optimal due to poor echocardiographic windows. ECG Findings * Normal sinus rhythm. Left Ventricle * LVEF 60-65%. * Mild concentric left ventricular hypertrophy. * Normal left ventricular diastolic function. Right Ventricle * Normal right ventricular structure and function. Left Atrium * Normal left atrial size. Right Atrium * Normal right atrial size. Interatrial Septum * Interatrial septum not well evaluated. Aortic Valve * Aortic valve not well visualized. * No aortic regurgitation. * No aortic stenosis. Mitral Valve * Normal mitral valve structure. * No mitral regurgitation. * No mitral stenosis. Tricuspid Valve * Normal tricuspid valve structure. * Unable to estimate RVSP due to lack of TR jet. * No tricuspid regurgitation. * No tricuspid stenosis. Pulmonic Valve * Pulmonic valve is not well visualized. Aorta * Normally sized aortic root. Pericardium * The pericardium appears normal. IVC * The IVC is not well evaluated. Consult Discharge Plan - Plan Referrals: Caitlin Koch CNP [Primary Care Provider] - (4) CAD (coronary artery disease) Qualifiers: Coronary Disease-Associated Artery/Lesion type: [place] artery [place] vs. 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
--- NOTE | 2018-11-10 12:03 | Cardiology Progress Note ---
Date of Encounter: 11/10/18 Time of Encounter: 12:01 Assessment and Plan (1) Abnormal stress test Current Visit: Yes Status: Acute Presenting symptom was left shoulder pain, worse with movement, which seems musculoskeletal. However, pt developed chest pain yesterday AM at rest, described as heaviness, now resolved. Troponin negative x 3. Hx of CAD and PCI. Stress test today--Perfusion imaging was positive for ischemia. Small sized reversible perfusion defect which is mild in intensity in the mid-inferior segment. Perfusion imaging was positive for infarct. There is a small sized fixed perfusion defect which is mild to moderate in intensity in the mid inferolateral segment, consistent with infarcts. Pharmacologic ECG was negative for ischemia. Gated EF = 64%. TTE LVEF 60-65%. Mild cLVH. Normal LVDD. Normal RV structure and function. No significant valvular dysfunction. Discussed with pt and recommend [facility] given his hx and abnormal stress tset. R/B/A discussed. He declines. 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 Aware of risks, including . Add Imdur 30 mg daily. Continue ASA, Statin, BB, ACEi, nitrates. Cardiology signing off. Reconsult PRN. (2) Hypertensive emergency Current Visit: Yes Status: Acute Improved, but still not at goal. Will increase Lisinopril to 10mg daily. (3) CAD (coronary artery disease) Current Visit: Yes Status: Chronic Hx CAD s/p PCI. Continue ASA, Statin, BB, ACEi, nitrates. Qualifiers: Coronary Disease-Associated Artery/Lesion type: [place] artery [place] vs. transplanted heart: [place] heart Associated angina: with other forms of angina Qualified Code(s): I25.118 - Atherosclerotic heart disease of [place] coronary artery with other forms of angina pectoris (4) Tobacco dependence Current Visit: Yes Status: Chronic Smoking cessation counseling given. Discussion w patient/family: The assessment and plan as outlined above was discussed with the patient and/or family members who expressed understanding and agreement. All questions were answered. Thank you for involving us in the care of your patient. Please call with any questions. I will discuss all the above with Dr. Rodriguez and make changes as necessary. Subjective Principal diagnosis: Left shoulder pain, chest pain, abnormal stress Interval history: Stress test resulted. Perfusion imaging was positive for ischemia.There is a small sized reversible perfusion defect which is mild in intensity in the mid- inferior segment. Perfusion imaging was positive for infarct. There is a small sized fixed perfusion defect which is mild to moderate in intensity in the mid inferolateral segment, consistent with infarcts. Pharmacologic ECG was negative for ischemia. Gated EF = 64%. TTE Technically sub-optimal due to poor echocardiographic windows. LVEF 60-65%. Mild cLVH. Normal left ventricular diastolic function. Normal right ventricular structure and function. Unable to estimate RVSP due to lack of TR jet. No significant valvular dysfunction. Pt denies chest pain overnight. Reports left shoulder stiffness. Objective Vital Signs, Last 4 Hours Temp Pulse Resp BP Pulse Ox 11/10/18 11:19 98.7 F 67 18 158/103 93 11/10/18 10:16 16 94 11/10/18 09:38 96 Vital Signs Temp Pulse Resp BP Pulse Ox 11/10/18 11:19 98.7 F 67 18 158/103 93 11/10/18 10:16 16 94 11/10/18 09:38 96 11/10/18 06:56 97.7 F 57 16 171/94 94 11/10/18 03:24 97.7 F 65 18 149/88 94 11/09/18 23:50 98 F 76 18 157/89 95 11/09/18 21:27 16 95 11/09/18 19:21 97.9 F 73 18 155/96 95 11/09/18 17:45 72 161/88 95 11/09/18 16:24 72 154/96 96 11/09/18 15:30 64 151/94 11/09/18 15:22 98.2 F 70 18 151/94 96 11/09/18 14:30 74 150/94 11/09/18 13:41 161/81 11/09/18 13:30 85 156/83 11/09/18 12:31 85 167/106 Intake and Output 11/09/18 11/10/18 11/10/18 23:59 07:59 15:59 Intake Total 505 / 505 104 / 104 337 / 337 Output Total 300 / 300 400 / 400 260 / 260 Balance 205 / 205 -296 / -296 77 / 77 Intake: IV Fluids 268 / 268 104 / 104 337 / 337 Heparin 25,000 UNIT/500 ML D5W 268 / 268 104 / 104 337 / 337 25,000 unit In 500 ml @ 12 UNIT /KG/HR 18 mls/hr IVC .Q24H [facility] Rx#:[id number] Oral 237 / 237 0 / 0 Output: Urine 300 / 300 400 / 400 260 / 260 Other: Meal Dinner Breakfast Percent of Meal Consumed 100% 0% Weight 74.3 kg Blood Glucose* 287 163 Patient Weight 11/10/18 23:59 Weight 74.3 kg General: Conversant, No Apparent Distress HEENT: Atraumatic, Normocephaly, Mucus Membranes Moist Neck: No JVD, Normal carotid pulses Cardiac: Reg Rate and Rhythm, Normal S1 and S2, No Murmur Lungs: Normal Breath Sounds Neuro: Alert and responsive, No focal deficits noted Abdomen: Soft, Non-Tender Skin: No rashes noted on visualized skin Musculoskeletal: No Chest Wall Tenderness Extremities: No Clubbing, No Cyanosis, No Edema, Normal Pulses Results 11/10/18 03:48 11/10/18 03:48 Lab Results 11/09/18 11/10/18 11/10/18 12:38 03:48 03:48 WBC 6.2 Hgb 13.4 Hct 39.4 Plt Count 185 Sodium 138 Potassium 3.8 Chloride 108 H Carbon Dioxide 26 BUN 14 Creatinine 0.68 L Glucose 171 H Calcium 9.0 Magnesium 1.9 Troponin I < 0.03 Short CBC 11/10/18 Range/Units 03:48 WBC 6.2 (4.3-11.1) K/mcL Hgb 13.4 (12.9-16.9) g/dL Hct 39.4 (37.5-50.1) % Plt Count 185 (140-400) K/mcL Neutrophils # 2.7 (1.6-8.9) K/mcL BMP 11/10/18 Range/Units 03:48 Sodium 138 (136-145) mEq/L Potassium 3.8 (3.5-5.1) mEq/L Chloride 108 H (98-107) mEq/L Carbon Dioxide 26 (23-29) mEq/L BUN 14 (8-23) mg/dL Creatinine 0.68 L (0.70-1.30) mg/dL Glucose 171 H (70-105) mg/dL Calcium 9.0 (8.6-10.3) mg/dL Cardiac Enzymes 11/09/18 Range/Units 12:38 Troponin I < 0.03 (< 0.04) ng/mL Impressions Echocardiogram 11/09/18 11:41 Impressions: Technically sub-optimal due to poor echocardiographic windows. LVEF 60-65%. Mild concentric left ventricular hypertrophy. Normal left ventricular diastolic function. Normal right ventricular structure and function. Unable to estimate RVSP due to lack of TR jet. No significant valvular dysfunction Left Ventricular Wall Motion: Rest Echo Findings All wall segments showed normal motion. Findings: Study Quality * Technically sub-optimal due to poor echocardiographic windows. ECG Findings * Normal sinus rhythm. Left Ventricle * LVEF 60-65%. * Mild concentric left ventricular hypertrophy. * Normal left ventricular diastolic function. Right Ventricle * Normal right ventricular structure and function. Left Atrium * Normal left atrial size. Right Atrium * Normal right atrial size. Interatrial Septum * Interatrial septum not well evaluated. Aortic Valve * Aortic valve not well visualized. * No aortic regurgitation. * No aortic stenosis. Mitral Valve * Normal mitral valve structure. * No mitral regurgitation. * No mitral stenosis. Tricuspid Valve * Normal tricuspid valve structure. * Unable to estimate RVSP due to lack of TR jet. * No tricuspid regurgitation. * No tricuspid stenosis. Pulmonic Valve * Pulmonic valve is not well visualized. Aorta * Normally sized aortic root. Pericardium * The pericardium appears normal. IVC * The IVC is not well evaluated. Active Medications Acetaminophen (Tylenol) 650 mg PO Q6HR PRN PRN Reason: Mild Pain/Fever Stop: 05/11/19 00:18 Aspirin (Aspirin) 81 mg PO DAILY [facility] Stop: 05/11/19 09:01 Last Admin: 11/10/18 09:58 Dose: 81 mg Atorvastatin Calcium (Lipitor) 40 mg PO HS [facility] Stop: 05/11/19 21:01 Last Admin: 11/09/18 20:13 Dose: 40 mg Budesonide/Formoterol Fumarate (Symbicort) 2 puff IH BIDR [facility]; Protocol Stop: 05/11/19 22:01 Last Admin: 11/10/18 10:16 Dose: 2 puff Dextrose/Water (Dextrose 50% (Syg)) 25 ml IVP AD PRN PRN Reason: Hypoglycemia Stop: 05/11/19 00:18 Docusate Sodium (Colace) 100 mg PO BID PRN PRN Reason: Constipation Stop: 05/11/19 09:01 Glucagon (Glucagen) 1 mg IM ONCE PRN PRN Reason: Hypoglycemia Stop: 05/11/19 00:18 Glucose (Gluctose) 15 gm PO ONCE PRN PRN Reason: Hypoglycemia Stop: 05/11/19 00:18 Glucose (Gluctose) 30 gm PO ONCE PRN PRN Reason: Hypoglycemia Stop: 05/11/19 00:18 Heparin Sodium (Porcine) (Heparin) 5,000 unit SQ Q12HCO [facility] Stop: 05/12/19 18:01 Hydralazine HCl (Hydralazine) 10 mg IVP Q6HR PRN PRN Reason: Hypertension SBP >170 Stop: 05/11/19 02:04 Last Admin: 11/09/18 11:18 Dose: 10 mg Dextrose (Dextrose 5%) 1,000 mls @ 100 mls/hr IVC .Q10H PRN PRN Reason: HYPOGLYCEMIA Stop: 05/11/19 00:18 Insulin Detemir (Levemir) 15 unit SQ BID [facility] Stop: 05/11/19 09:01 Last Admin: 11/10/18 10:39 Dose: 15 unit Insulin Human Lispro (Humalog) 0 units SQ Q6HR [facility]; Protocol Stop: 05/11/19 06:01 Last Admin: 11/10/18 09:48 Dose: Not Given Isosorbide Mononitrate (Imdur) 30 mg PO DAILY [facility] Stop: 05/12/19 12:16 Lisinopril (Zestril) 5 mg PO ONCE ONE; Protocol Stop: 11/10/18 12:01 Lisinopril (Zestril) 10 mg PO DAILY [facility]; Protocol Stop: 05/13/19 09:01 Metoprolol Succinate (Toprol Xl) 50 mg PO DAILY [facility] Stop: 05/12/19 09:01 Last Admin: 11/10/18 09:58 Dose: 25 mg Naloxone HCl (Narcan) 0.4 mg IVP Q2MIN PRN PRN Reason: SEE COMMENTS Stop: 05/11/19 00:18 Nifedipine (Procardia Xl) 60 mg PO DAILY [facility]; Protocol Stop: 05/12/19 09:01 Last Admin: 11/10/18 09:59 Dose: 60 mg Ondansetron HCl (Zofran) 4 mg IVP Q6HR PRN PRN Reason: Nausea And Vomiting Stop: 05/11/19 00:18 - Imaging and Cardiology Stress Test: report reviewed Echo: report reviewed - EKG Interpretation EKG results cardiology: other (12 hr tele AVG HR 63, SR, no significant pauses or arrhythmias.) Consult Discharge Plan - Plan Referrals: Cailtin Koch [employer] [Primary Care Provider] -
[2018-11-10] MEDS ORDERED: Isosorbide MONOnitrate (24 HR) 30 MG TAB.ER.24H PO SCH (12:15)
[2018-11-10 14:11] VITALS: BP 124/71
[2018-11-10] MEDS ORDERED: Nicotine 21 MG PATCH.TD24 TD SCH (14:15)
--- NOTE | 2018-11-10 14:40 | Discharge Summary ---
- NOTES TO OUTPATIENT PROVIDER Notes to Outpatient Provider: 1. HTN medication adjusted: Increase nifedipine XL to 60mg po daily, increase lisinopril to 5mg po daily, decrease metoprolol XL to 25mg po daily b/o relatively low HR, add imdur 30mg po daily. Please check BP and HR. 2. Stress test positive, need cardio follow up. Orders not resulted at time of discharge: Pending orders 11/09/18 00:17 ECG 12 lead ECG [ECG] Routine 11/10/18 08:00 NM ainsley perf SPECT multi [NM] Routine Date of Encounter: 11/10/18 Time of Encounter: 14:00 - Discharge Diagnosis (1) Left arm pain Priority: Primary Status: Acute (2) DVT prophylaxis Priority: Secondary Status: Acute (3) Hypertensive emergency Priority: Primary Status: Acute (4) CAD (coronary artery disease) Priority: Primary Status: Chronic Qualifiers: Coronary Disease-Associated Artery/Lesion type: [place] artery [place] vs. transplanted heart: [place] heart Associated angina: with other forms of angina Qualified Code(s): I25.118 - Atherosclerotic heart disease of [place] coronary artery with other forms of angina pectoris (5) Diabetes mellitus, type 2 Priority: Secondary Status: Chronic Qualifiers: Diabetes mellitus exterminator insulin use: with jail use Diabetes mellitus complication status: without complication Qualified Code(s): E11.9 - Type 2 diabetes mellitus without complications; Z79.4 - care home (current) use of insulin (6) Tobacco dependence Priority: Secondary Status: Chronic (7) History of CVA (cerebrovascular accident) without residual deficits Priority: Secondary Status: Chronic (8) Hyperlipidemia Priority: Secondary Status: Chronic Qualifiers: Hyperlipidemia type: unspecified Qualified Code(s): E78.5 - Hyperlipidemia, unspecified Hospital course: Mr. Lehman is a 63 year old male presents to ER for left arm pain. Patient also has uncontrolled blood pressure. Patient has history of CAD with stent. Patient was admitted to rule out ACS and hypertensive emergency. Patient was placed on nitroglycerin drip to control BP. He was also placed on heparin drip as concern for unstable angina. Patient was placed on cardiac monitoring. 3 sets of troponin negative. Cardiology consult saw patient, recommend stress te st. Stress test had been done today, which shows positive for ischemia. Cardiology plan to have [facility] for patient, however, patient declined C and would rather follow his old cardiology at [facility] [place]. Patient's BP getting down after medication adjustment. NTG drip stopped. Imdur po added by cardiology. I have seen and examined the patient today. Patient is awake alert oriented 3. Denies chest pain, shortness of breath, nausea, or dizziness. Vitals are stable. BP 124/71 on new dose of hypertensive medication. Patient has BP machine at home and was advised to check at least 3 times a day as hypertensive medication has been changed. Patient and family agree. Patient is stable to discharge home and continue follow-up with his cardiology as outpatient. Discharge discussed with: patient Time spent discussing smoking cessation with patient: 3 to 10 minutes - Time Spent with Patient Total time spent providing and/or coordinating discharge services: 25 minutes Less than 30 minutes - Discharge Medications Prescriptions: Isosorbide MONOnitrate (24 HR) [Imdur] 30 mg PO DAILY 30 Days #30 tab.er.24h Lisinopril [Zestril] 5 mg PO DAILY 30 Days #30 tablet Nicotine Patch [Nicoderm] 21 mg TD DAILY 14 Days #14 patch.td24 NIFEdipine XL (24 HR) [Procardia XL] 60 mg PO DAILY 30 Days #60 tab.er.24 Home Medications: Albuterol Neb [Proventil Neb] 2.5 mg IH Q4HR PRN 08/09/17 [History] Aspirin 325 mg PO DAILY 08/09/17 [History] Aspirin/Dipyridamole [Aggrenox 25 mg-200 mg Capsule] 1 tab PO BID 08/09/17 [History] Atorvastatin Calcium [Lipitor] 40 mg PO HS 08/09/17 [History] Budesonide/Formoterol 160/4.5 [Symbicort 160/4.5] 2 puff IH BIDR 08/09/17 [Hi story] Celecoxib [Celebrex] 200 mg PO BID 08/09/17 [History] Cetirizine HCl [All Day Allergy] 10 mg PO DAILY 08/09/17 [History] Clindamycin [Cleocin] 150 mg PO Q6HR #7 capsule 08/09/17 [Rx] Cyclobenzaprine [Flexeril] 10 mg PO BID PRN 08/09/17 [History] Docusate Sodium [Colace] 200 mg PO BID 08/09/17 [History] Ibuprofen [Motrin] 600 mg PO Q8HR #20 tab 08/09/17 [Rx] Insulin Glargine,Hum.rec.anlog [Lantus Solostar] 35 unit SQ BID 08/09/17 [History] Ipratropium [ATROVENT Inhaler] 2 puff IH DAILY 08/09/17 [History] Metformin HCl [Glucophage] 1,000 mg PO BID 08/09/17 [History] Metoclopramide [Reglan] 10 mg PO Q6HR 08/09/17 [History] Metoprolol XL (24 HR) Succ [Toprol Xl] 25 mg PO DAILY 08/09/17 [History] NIFEdipine XL (24 HR) [Procardia XL] 30 mg PO DAILY 08/09/17 [History] Niacin [Niacor] 500 mg PO DAILY 08/09/17 [History] Omeprazole [PriLOSEC] 20 mg PO DAILY 08/09/17 [History] OxyCODONE Immed Rel [Roxicodone 5 MG] 5 mg PO Q4HR PRN #24 tablet 08/09/17 [Rx] Polyethylene Glycol 3350 [MiraLAX] 17 gm PO DAILY PRN 08/09/17 [History] Pregabalin [Lyrica] 100 mg PO BID 08/09/17 [History] SUMAtriptan Succinate [Imitrex] 100 mg PO AD PRN 08/09/17 [History] Saxagliptin HCl [Onglyza] 5 mg PO DAILY 08/09/17 [History] Tamsulosin [Flomax] 0.4 mg PO DAILY 08/09/17 [History] Topiramate [Topamax] 50 mg PO DAILY 08/09/17 [History] Isosorbide MONOnitrate (24 HR) [Imdur] 30 mg PO DAILY 30 Days #30 tab.er.24h 11/10/18 [Rx] Lisinopril [Zestril] 5 mg PO DAILY 30 Days #30 tablet 11/10/18 [Rx] NIFEdipine XL (24 HR) [Procardia XL] 60 mg PO DAILY 30 Days #60 tab.er.24 11/10/18 [Rx] Nicotine Patch [Nicoderm] 21 mg TD DAILY 14 Days #14 patch.td24 11/10/18 [Rx] Allergies/Adverse Reactions: Allergy/AdvReac Type Severity Reaction Status Date / Time Varenicline [From Chantix] Allergy Nausea Verified 08/01/17 12:26 Date of admission: 11/09/18 03:54 Primary care physician: JESUS Kim Consults: 11/09/18 00:17 Consult to Cardiology [CONS] Routine Comment: Consulting Provider: Cardiology Katie Reason for Consult: [place]inda physician already spoke with Dr. Farnsworth prior to transfer, patient is on nitroglycerin drip for hypertensive emeregency and Heparin drip for possible ACS Call Completed: Yes Discharging clinician: Rula Thurman Anticipated date of discharge: 11/10/18 - Constitutional Vitals: Temp Pulse Resp BP Pulse Ox 98.7 F 88 18 124/71 93 11/10/18 11:19 11/10/18 12:45 11/10/18 11:19 11/10/18 14:10 11/10/18 11:19 General appearance: Present: A&O X 3, pleasant, no acute distress Exam: Pt is AAO x 3, in NAD HEENT: NC/AT, PERRL Neck: Supple, no JVD, no LAD Lungs: CTA b/l Heart: S1S2, RRR Abd: Soft, nontender, BS present Ext: ROM wnl, no pedal edema. Neuro: No focal deficit - Patient Status Disposition: Home, Self-Care Condition: Good Functional capacity at discharge: independent ambulation Overall status at discharge: patient is back to baseline - Discharge Instructions Follow Up With: Caitlin Koch, [employer] [Primary Care Provider] - - Diet and Activity Activity: increase activity as tolerated Diet: diabetic diet, low fat, low cholesterol, low salt diet
[2018-11-10] MEDS ORDERED: *HR* Heparin 5,000 UNIT/ML VIAL SQ SCH (18:00)
== END 2018-11-10 16:17 | disposition home or self-care (01) | DRG 305 ==
LOC: 2NNU
PROVIDERS: ADMIT Pediatrics; ATTEND Pediatrics

== ENCOUNTER 2019-09-23 15:22 | Inpatient (IN) ==
[2019-09-23 16:01] LABS: Hematocrit 43.9 % (37.5-50.1); Hemoglobin 15.4 g/dL (12.9-16.9); Mean Corpuscular HGB Conc 35.1 g/dL (31.6-35.5); Mean Corpuscular Hemoglobin 32.5 pg (28.0-33.3); Mean Corpuscular Volume 92.6 fL (83.0-100.0); Mean Platelet Volume 10.4 fL (9.4-12.4); Platelet Count 258 K/mcL (140-400); Red Blood Count 4.74 M/mcL (4.19-5.50); Red Cell Distribution Width 12.6 % (11.5-14.5); White Blood Count 5.8 K/mcL (4.3-11.1)
[2019-09-23 16:20] LABS: Bilirubin,Urine Moderate (Negative); Blood,Urine Negative (Negative); Clarity,Urine Clear (Clear); Color,Urine Dark Yellow (Yellow); Glucose,Urine (UA) >=1000 mg/dL (Normal); Ketones,Urine 80 mg/dL (Negative); Leukocyte Esterase,Urine Negative (Negative); Nitrite,Urine Negative (Negative); PH,Urine 5.5 pH Units (5.0-8.0); Protein,Urine 100 mg/dL (Neg-Trace); Specific Gravity,Urine > 1.030 (1.010-1.025); Urobilinogen,Urine Normal (Normal)
[2019-09-23 16:21] LABS: BUN/Creatinine Ratio 47 (6-26); Blood Urea Nitrogen 31 mg/dL (8-23); Calcium 9.8 mg/dL (8.6-10.3); Carbon Dioxide 23 mEq/L (23-29); Chloride 103 mEq/L (98-107); Glucose 296 mg/dL (70-105); Osmolality,Calculated 306 (280-300); Sodium 139 mEq/L (136-145); Troponin I < 0.03 ng/mL (< 0.04); eGFR For African Americans > 60 (> 60); eGFR For Non-African Americans > 60 (> 60)
[2019-09-23 16:23] LABS: Bacteria,Urine None Seen per hpf (None-Few); Hyaline Casts,Urine Moderate per lpf (None-Few); Squamous Epithelial Cell,Urine Many per lpf (None-Few); WBC,Urine 0-3 per hpf (0-3)
[2019-09-23 16:33] LABS: Thyroid Stimulating Hormone 0.531 mcIU/mL (0.340-5.600)
[2019-09-23] MEDS ORDERED: 0.9 % Sodium Chloride 1,000 ML IVC ONE (16:34)
[2019-09-23 16:35] LABS: Mucus,Urine Moderate (Few)
[2019-09-23] MEDS ORDERED: Ondansetron 4 MG/2 ML VIAL IVP PRN (17:22)
[2019-09-23] MEDS ORDERED: Naloxone 0.4 MG/ML INJ IVP PRN (17:22)
[2019-09-23] MEDS ORDERED: 0.9 % Sodium Chloride 1,000 ML IVC SCH (17:30)
[2019-09-23] MEDS ORDERED: D5% in Water 1,000 ML IVC PRN (17:49)
[2019-09-23] MEDS ORDERED: *HR* Dextrose 50 % in Water (Syg) 50 ML SYRINGE IVP PRN (17:49)
[2019-09-23] MEDS ORDERED: Dextrose Gel 15 GM/37.5 ML TUBE PO PRN ×2 (17:49)
[2019-09-23] MEDS ORDERED: Ipratropium/Albuterol Neb 3 ML IH PRN (17:50)
[2019-09-23] MEDS ORDERED: Perflutren Lipid Microsphere 1.3 ML in 0.9 % Sodium Chloride 8.7 ML IVP ONE (20:11)
[2019-09-23] MEDS ORDERED: Insulin LISPRO 300 UNITS/3 ML VIAL SQ SCH (21:00)
[2019-09-23] MEDS ORDERED: Insulin DETEMIR 100 UNIT/ML X5UNITS SQ SCH (21:00)
[2019-09-24 02:16] LABS: Basophils # 0.1 K/mcL (0.0-0.2); Basophils % 0.8 %; Eosinophils # 0.1 K/mcL (0.0-0.6); Eosinophils % 1.8 %; Hematocrit 40.7 % (37.5-50.1); Immature Granulocytes % 0.3 % (0-4); Lymphocytes % 40.3 %; Mean Corpuscular HGB Conc 33.7 g/dL (31.6-35.5); Mean Corpuscular Hemoglobin 32.3 pg (28.0-33.3); Mean Platelet Volume 10.7 fL (9.4-12.4); Monocytes # 0.5 K/mcL (0.0-1.3); Monocytes % 6.8 %; Neutrophils # 3.7 K/mcL (1.6-8.9); Platelet Count 227 K/mcL (140-400); Red Blood Count 4.24 M/mcL (4.19-5.50); Red Cell Distribution Width 12.6 % (11.5-14.5); White Blood Count 7.4 K/mcL (4.3-11.1)
[2019-09-24 02:17] LABS: Hemoglobin 13.7 g/dL (12.9-16.9)
[2019-09-24 02:56] LABS: BUN/Creatinine Ratio 48 (6-26); Blood Urea Nitrogen 25 mg/dL (8-23); Calcium 9.3 mg/dL (8.6-10.3); Carbon Dioxide 20 mEq/L (23-29); Chloride 109 mEq/L (98-107); Chol/HDL Ratio 4.4 (0-4.9); Cholesterol 127 mg/dL (< 200); Glucose 108 mg/dL (70-105); HDL Cholesterol 29 mg/dL (40-59); LDL Cholesterol,Calculated 78 mg/dL (0-99); Magnesium 1.6 mg/dL (1.6-2.6); Osmolality,Calculated 297 (280-300); Potassium 3.5 mEq/L (3.5-5.1); Sodium 141 mEq/L (136-145); Triglycerides 102 mg/dL (< 150); eGFR For African Americans > 60 (> 60); eGFR For Non-African Americans > 60 (> 60)
[2019-09-24] MEDS ORDERED: Insulin LISPRO 300 UNITS/3 ML VIAL SQ SCH (07:30)
[2019-09-24 08:49] LABS: Estimated Average Glucose 177 mg/dl
[2019-09-24] MEDS ORDERED: Aspirin Enteric Coated 81 MG Tablet PO SCH (09:00)
[2019-09-24] MEDS ORDERED: D5% in 0.9% NACL 1,000 ML IVC SCH (10:30)
[2019-09-24] MEDS: Insulin LISPRO 300 UNITS/3 ML VIAL SQ SCH ×3 (15:24→21:10)
[2019-09-24] MEDS: *HR* Heparin 5,000 UNIT/ML VIAL SQ SCH ×2 (15:25→21:06)
[2019-09-24] MEDS ORDERED: 0.9 % Sodium Chloride 1,000 ML IVC SCH (22:30)
[2019-09-24] MEDS: Nicotine 7 MG PATCH.TD24 TD SCH (23:42)
[2019-09-25] MEDS: Insulin LISPRO 300 UNITS/3 ML VIAL SQ SCH ×4 (02:43→22:25)
[2019-09-25] MEDS: *HR* Heparin 5,000 UNIT/ML VIAL SQ SCH ×3 (05:33→22:17)
[2019-09-25] MEDS ORDERED: NIFEdipine 10 MG CAPSULE PO SCH (09:00)
[2019-09-25] MEDS: Nicotine 7 MG PATCH.TD24 TD SCH (09:10)
[2019-09-25] MEDS: amLODIPine 5 MG TABLET GTUBE SCH (12:11)
[2019-09-25] MEDS: Ondansetron 4 MG/2 ML VIAL IVP SCH ×2 (12:11→18:14)
[2019-09-25] MEDS ORDERED: NIFEdipine XL (24 HR) 30 MG TAB.ER.24 PO SCH (12:57)
[2019-09-25] MEDS: Scopolamine Patch 1.5 MG PATCH.TD72 TD SCH (13:49)
[2019-09-25] MEDS ORDERED: Haloperidol Lactate 5 MG/ML VIAL IVP ONE (13:55)
[2019-09-25] MEDS ORDERED: Loratadine 10 MG TABLET PO PRN (16:58)
[2019-09-26] MEDS ORDERED: Haloperidol Lactate 5 MG/ML VIAL IVP ONE (01:53)
[2019-09-26] MEDS: Ondansetron 4 MG/2 ML VIAL IVP SCH (02:02)
[2019-09-26 04:37] LABS: BUN/Creatinine Ratio 26 (6-26); Blood Urea Nitrogen 18 mg/dL (8-23); Calcium 9.3 mg/dL (8.6-10.3); Carbon Dioxide 26 mEq/L (23-29); Chloride 102 mEq/L (98-107); Glucose 288 mg/dL (70-105); Magnesium 1.8 mg/dL (1.6-2.6); Osmolality,Calculated 302 (280-300); Potassium 3.4 mEq/L (3.5-5.1); Sodium 140 mEq/L (136-145); eGFR For African Americans > 60 (> 60); eGFR For Non-African Americans > 60 (> 60)
[2019-09-26] MEDS: Insulin LISPRO 300 UNITS/3 ML VIAL SQ SCH ×4 (05:07→22:28)
[2019-09-26] MEDS: *HR* Heparin 5,000 UNIT/ML VIAL SQ SCH ×3 (05:08→22:27)
[2019-09-26] MEDS: amLODIPine 5 MG TABLET GTUBE SCH ×2 (07:43→09:08)
[2019-09-26] MEDS: Nicotine 7 MG PATCH.TD24 TD SCH (09:08)
[2019-09-26] MEDS ORDERED: Potassium Chloride Elixir 20 MEQ/15 ML UDC GTUBE ONE (13:23)
[2019-09-26] MEDS: Nystatin SUSP 5 ML UD.LIQ PO SCH (22:26)
[2019-09-26] MEDS: Docusate Oral Soln 100 MG/10 ML UDC GTUBE SCH (22:26)
[2019-09-26] MEDS: Insulin DETEMIR 100 UNIT/ML X5UNITS SQ SCH (22:28)
[2019-09-27] MEDS ORDERED: Haloperidol Lactate 5 MG/ML VIAL IVP ONE ×2 (00:40→03:50)
[2019-09-27] MEDS ORDERED: *HR* Promethazine 25 MG/ML VIAL IVP ONE (00:41)
[2019-09-27] MEDS: Insulin LISPRO 300 UNITS/3 ML VIAL SQ SCH ×4 (05:43→23:58)
[2019-09-27] MEDS: *HR* Heparin 5,000 UNIT/ML VIAL SQ SCH ×3 (06:15→20:38)
[2019-09-27] MEDS: Nystatin SUSP 5 ML UD.LIQ PO SCH ×4 (09:45→20:38)
[2019-09-27] MEDS: Docusate Oral Soln 100 MG/10 ML UDC GTUBE SCH ×2 (09:45→20:38)
[2019-09-27] MEDS: Aspirin 325 MG TABLET PO SCH (09:45)
[2019-09-27] MEDS: Nicotine 7 MG PATCH.TD24 TD SCH (09:49)
[2019-09-27] MEDS: amLODIPine 5 MG TABLET GTUBE SCH (09:50)
[2019-09-27] MEDS: Insulin DETEMIR 100 UNIT/ML X5UNITS SQ SCH (10:16)
[2019-09-27 10:38] LABS: Mean Corpuscular Hemoglobin 32.2 pg (28.0-33.3); Mean Platelet Volume 10.9 fL (9.4-12.4); Platelet Count 238 K/mcL (140-400); Red Blood Count 4.35 M/mcL (4.19-5.50); Red Cell Distribution Width 12.6 % (11.5-14.5); White Blood Count 10.6 K/mcL (4.3-11.1)
[2019-09-27 11:02] LABS: BUN/Creatinine Ratio 33 (6-26); Blood Urea Nitrogen 19 mg/dL (8-23); Calcium 9.2 mg/dL (8.6-10.3); Carbon Dioxide 26 mEq/L (23-29); Chloride 105 mEq/L (98-107); Glucose 297 mg/dL (70-105); Osmolality,Calculated 303 (280-300); Potassium 3.6 mEq/L (3.5-5.1); Sodium 140 mEq/L (136-145); eGFR For African Americans > 60 (> 60); eGFR For Non-African Americans > 60 (> 60)
[2019-09-27] MEDS ORDERED: Insulin DETEMIR 100 UNIT/ML X5UNITS SQ SCH (21:00)
[2019-09-28 01:30] LABS: Hematocrit 38.9 % (37.5-50.1); Hemoglobin 13.4 g/dL (12.9-16.9); Mean Corpuscular HGB Conc 34.4 g/dL (31.6-35.5); Mean Corpuscular Volume 92.8 fL (83.0-100.0); Mean Platelet Volume 11.4 fL (9.4-12.4); Platelet Count 227 K/mcL (140-400); Red Blood Count 4.19 M/mcL (4.19-5.50); White Blood Count 7.8 K/mcL (4.3-11.1)
[2019-09-28 01:51] LABS: BUN/Creatinine Ratio 41 (6-26); Blood Urea Nitrogen 23 mg/dL (8-23); Calcium 9.4 mg/dL (8.6-10.3); Carbon Dioxide 29 mEq/L (23-29); Chloride 106 mEq/L (98-107); Glucose 281 mg/dL (70-105); Osmolality,Calculated 308 (280-300); Potassium 3.2 mEq/L (3.5-5.1); Sodium 142 mEq/L (136-145); eGFR For African Americans > 60 (> 60); eGFR For Non-African Americans > 60 (> 60)
[2019-09-28] MEDS ORDERED: Potassium Chloride 20 MEQ, Lidocaine 1% 2 ML in 0.9 % Sodium Chloride 250 ML IVPB ONE (04:47)
[2019-09-28] MEDS: Insulin LISPRO 300 UNITS/3 ML VIAL SQ SCH ×4 (05:27→22:17)
[2019-09-28] MEDS: *HR* Heparin 5,000 UNIT/ML VIAL SQ SCH ×3 (05:28→21:52)
[2019-09-28] MEDS ORDERED: Potassium Chloride Elixir 20 MEQ/15 ML UDC GTUBE ONE (07:40)
[2019-09-28] MEDS: Aspirin 325 MG TABLET PO SCH (09:56)
[2019-09-28] MEDS: Finasteride 5 MG TABLET PO SCH (09:56)
[2019-09-28] MEDS: amLODIPine 5 MG TABLET GTUBE SCH (09:56)
[2019-09-28] MEDS: Nicotine 7 MG PATCH.TD24 TD SCH (09:56)
[2019-09-28] MEDS: Nystatin SUSP 5 ML UD.LIQ PO SCH ×4 (09:57→21:52)
[2019-09-28] MEDS: Docusate Oral Soln 100 MG/10 ML UDC GTUBE SCH ×2 (09:57→21:52)
[2019-09-28] MEDS: Insulin DETEMIR 100 UNIT/ML X5UNITS SQ SCH ×2 (09:57→21:53)
[2019-09-28] MEDS: Scopolamine Patch 1.5 MG PATCH.TD72 TD SCH (14:06)
[2019-09-29 02:17] LABS: INR 1.1; Prothrombin Time 12.3 Seconds (9.4-12.1)
[2019-09-29 02:29] LABS: BUN/Creatinine Ratio 36 (6-26); Blood Urea Nitrogen 20 mg/dL (8-23); Calcium 9.4 mg/dL (8.6-10.3); Carbon Dioxide 27 mEq/L (23-29); Chloride 110 mEq/L (98-107); Glucose 67 mg/dL (70-105); Magnesium 1.8 mg/dL (1.6-2.6); Osmolality,Calculated 303 (280-300); Potassium 3.3 mEq/L (3.5-5.1); Sodium 146 mEq/L (136-145); eGFR For African Americans > 60 (> 60); eGFR For Non-African Americans > 60 (> 60)
[2019-09-29] MEDS ORDERED: Haloperidol Lactate 5 MG/ML VIAL IVP ONE (02:37)
[2019-09-29] MEDS ORDERED: *HR* Promethazine 25 MG/ML VIAL IVP ONE (02:37)
[2019-09-29] MEDS ORDERED: Potassium Chloride 20 MEQ, Lidocaine 1% 2 ML in 0.9 % Sodium Chloride 250 ML IVPB ONE (02:37)
[2019-09-29] MEDS ORDERED: *HR* Dextrose 50 % in Water (Syg) 50 ML SYRINGE IVP PRN (04:46)
[2019-09-29] MEDS: Insulin LISPRO 300 UNITS/3 ML VIAL SQ SCH ×3 (05:55→17:47)
[2019-09-29] MEDS: *HR* Heparin 5,000 UNIT/ML VIAL SQ SCH ×3 (06:07→21:49)
[2019-09-29] MEDS ORDERED: Propofol 500 MG/50 ML INFUS..BTL ONE (07:13)
[2019-09-29] MEDS ORDERED: Lidocaine -MPF 2% 2 ML VIAL ONE (07:13)
[2019-09-29] MEDS ORDERED: Potassium Chloride Elixir 20 MEQ/15 ML UDC GTUBE ONE (07:31)
[2019-09-29] MEDS ORDERED: ceFAZolin 1,000 MG in Water for inj. (sterile) 10 ML IVP ONE (07:48)
[2019-09-29] MEDS ORDERED: Lidocaine -MPF 2% 2 ML VIAL INFILT ONE (07:50)
[2019-09-29] MEDS ORDERED: *HR* Metoprolol 5 MG/5 ML VIAL IVP ONE (08:11)
[2019-09-29] MEDS ORDERED: CeFAZolin Syr 2,000MG/20 ML 2,000 MG/20 ML SYRINGE IVPB ONE (08:15)
[2019-09-29] MEDS: Insulin DETEMIR 100 UNIT/ML X5UNITS SQ SCH ×2 (10:18→21:49)
[2019-09-29] MEDS: Nystatin SUSP 5 ML UD.LIQ PO SCH ×4 (12:41→21:49)
[2019-09-29] MEDS: Docusate Oral Soln 100 MG/10 ML UDC GTUBE SCH ×2 (17:33→21:48)
[2019-09-29] MEDS: Finasteride 5 MG TABLET PO SCH (17:45)
[2019-09-29] MEDS: Aspirin 325 MG TABLET PO SCH (17:45)
[2019-09-29] MEDS: amLODIPine 5 MG TABLET GTUBE SCH (17:45)
[2019-09-29] MEDS: Nicotine 7 MG PATCH.TD24 TD SCH (17:46)
[2019-09-30] MEDS: Insulin LISPRO 300 UNITS/3 ML VIAL SQ SCH ×5 (00:40→22:44)
[2019-09-30 02:15] LABS: Basophils # 0.1 K/mcL (0.0-0.2); Basophils % 0.7 %; Eosinophils # 0.1 K/mcL (0.0-0.6); Eosinophils % 1.3 %; Hematocrit 38.6 % (37.5-50.1); Hemoglobin 12.8 g/dL (12.9-16.9); Immature Granulocytes % 0.1 % (0-4); Lymphocytes # 2.7 K/mcL (0.6-4.6); Lymphocytes % 38.2 %; Mean Corpuscular HGB Conc 33.2 g/dL (31.6-35.5); Mean Corpuscular Hemoglobin 32.2 pg (28.0-33.3); Mean Platelet Volume 11.5 fL (9.4-12.4); Monocytes # 0.5 K/mcL (0.0-1.3); Monocytes % 6.6 %; Neutrophils # 3.7 K/mcL (1.6-8.9); Platelet Count 222 K/mcL (140-400); Red Blood Count 3.98 M/mcL (4.19-5.50); Red Cell Distribution Width 13.1 % (11.5-14.5); Segmented Neutrophils % 53.1 %
[2019-09-30 02:36] LABS: BUN/Creatinine Ratio 43 (6-26); Blood Urea Nitrogen 27 mg/dL (8-23); Calcium 9.1 mg/dL (8.6-10.3); Carbon Dioxide 23 mEq/L (23-29); Chloride 107 mEq/L (98-107); Glucose 195 mg/dL (70-105); Magnesium 1.9 mg/dL (1.6-2.6); Osmolality,Calculated 302 (280-300); Phosphorous 3.6 mg/dL (2.7-4.5); Potassium 3.5 mEq/L (3.5-5.1); Sodium 141 mEq/L (136-145); eGFR For African Americans > 60 (> 60); eGFR For Non-African Americans > 60 (> 60)
[2019-09-30] MEDS: *HR* Heparin 5,000 UNIT/ML VIAL SQ SCH ×3 (05:25→20:29)
[2019-09-30] MEDS: Docusate Oral Soln 100 MG/10 ML UDC GTUBE SCH ×2 (10:52→20:28)
[2019-09-30] MEDS: amLODIPine 5 MG TABLET GTUBE SCH (10:53)
[2019-09-30] MEDS: Finasteride 5 MG TABLET PO SCH (10:53)
[2019-09-30] MEDS: Nystatin SUSP 5 ML UD.LIQ PO SCH ×4 (10:54→20:30)
[2019-09-30] MEDS: Aspirin 325 MG TABLET PO SCH (10:54)
[2019-09-30] MEDS: Nicotine 7 MG PATCH.TD24 TD SCH (10:55)
[2019-09-30] MEDS: Insulin DETEMIR 100 UNIT/ML X5UNITS SQ SCH ×2 (10:55→20:28)
[2019-10-01 04:16] LABS: Hematocrit 41.5 % (37.5-50.1); Hemoglobin 13.3 g/dL (12.9-16.9); Mean Corpuscular Hemoglobin 32.2 pg (28.0-33.3); Mean Corpuscular Volume 100.5 fL (83.0-100.0); Mean Platelet Volume 11.2 fL (9.4-12.4); Platelet Count 221 K/mcL (140-400); Red Blood Count 4.13 M/mcL (4.19-5.50); White Blood Count 9.5 K/mcL (4.3-11.1)
[2019-10-01 04:40] LABS: BUN/Creatinine Ratio 56 (6-26); Blood Urea Nitrogen 31 mg/dL (8-23); Calcium 8.9 mg/dL (8.6-10.3); Carbon Dioxide 24 mEq/L (23-29); Chloride 107 mEq/L (98-107); Glucose 166 mg/dL (70-105); Osmolality,Calculated 300 (280-300); Potassium 3.6 mEq/L (3.5-5.1); Sodium 140 mEq/L (136-145); eGFR For African Americans > 60 (> 60); eGFR For Non-African Americans > 60 (> 60)
[2019-10-01] MEDS: *HR* Heparin 5,000 UNIT/ML VIAL SQ SCH ×3 (04:58→21:18)
[2019-10-01] MEDS: Insulin LISPRO 300 UNITS/3 ML VIAL SQ SCH ×4 (04:58→22:58)
[2019-10-01] MEDS: Nystatin SUSP 5 ML UD.LIQ PO SCH ×4 (10:07→21:17)
[2019-10-01] MEDS: Nicotine 7 MG PATCH.TD24 TD SCH (10:10)
[2019-10-01] MEDS: Docusate Oral Soln 100 MG/10 ML UDC GTUBE SCH ×2 (10:10→21:18)
[2019-10-01] MEDS: Insulin DETEMIR 100 UNIT/ML X5UNITS SQ SCH ×2 (10:16→21:18)
[2019-10-01] MEDS: amLODIPine 5 MG TABLET GTUBE SCH (10:37)
[2019-10-01] MEDS: Aspirin 325 MG TABLET PO SCH (10:37)
[2019-10-01] MEDS: Finasteride 5 MG TABLET PO SCH (10:39)
[2019-10-01] MEDS: Scopolamine Patch 1.5 MG PATCH.TD72 TD SCH (13:13)
[2019-10-02] MEDS: Insulin LISPRO 300 UNITS/3 ML VIAL SQ SCH ×2 (04:55→11:19)
[2019-10-02 05:09] LABS: Basophils # 0.1 K/mcL (0.0-0.2); Basophils % 0.7 %; Eosinophils # 0.1 K/mcL (0.0-0.6); Eosinophils % 1.6 %; Hematocrit 36.2 % (37.5-50.1); Hemoglobin 11.8 g/dL (12.9-16.9); Immature Granulocytes % 0.4 % (0-4); Lymphocytes # 1.8 K/mcL (0.6-4.6); Mean Corpuscular HGB Conc 32.6 g/dL (31.6-35.5); Mean Corpuscular Hemoglobin 32.4 pg (28.0-33.3); Mean Corpuscular Volume 99.5 fL (83.0-100.0); Mean Platelet Volume 11.8 fL (9.4-12.4); Monocytes # 0.7 K/mcL (0.0-1.3); Monocytes % 8.6 %; Neutrophils # 5.5 K/mcL (1.6-8.9); Platelet Count 222 K/mcL (140-400); Red Blood Count 3.64 M/mcL (4.19-5.50); Red Cell Distribution Width 12.9 % (11.5-14.5); Segmented Neutrophils % 66.7 %; White Blood Count 8.2 K/mcL (4.3-11.1)
[2019-10-02 05:11] LABS: BUN/Creatinine Ratio 46 (6-26); Blood Urea Nitrogen 28 mg/dL (8-23); Calcium 8.8 mg/dL (8.6-10.3); Carbon Dioxide 33 mEq/L (23-29); Chloride 104 mEq/L (98-107); Glucose 161 mg/dL (70-105); Osmolality,Calculated 301 (280-300); Potassium 3.7 mEq/L (3.5-5.1); Sodium 141 mEq/L (136-145); eGFR For African Americans > 60 (> 60); eGFR For Non-African Americans > 60 (> 60)
[2019-10-02] MEDS: *HR* Heparin 5,000 UNIT/ML VIAL SQ SCH (05:33)
[2019-10-02] MEDS: Docusate Oral Soln 100 MG/10 ML UDC GTUBE SCH (10:04)
[2019-10-02] MEDS: Finasteride 5 MG TABLET PO SCH (10:04)
[2019-10-02] MEDS: Nystatin SUSP 5 ML UD.LIQ PO SCH (10:04)
[2019-10-02] MEDS: Nicotine 7 MG PATCH.TD24 TD SCH (10:05)
[2019-10-02] MEDS: amLODIPine 5 MG TABLET GTUBE SCH (10:05)
[2019-10-02] MEDS: Aspirin 325 MG TABLET PO SCH (10:05)
[2019-10-02] MEDS: Insulin DETEMIR 100 UNIT/ML X5UNITS SQ SCH (10:06)
[2019-10-02 10:47] VITALS: BP 135/74
== END 2019-10-02 13:31 | disposition home health service (06) | DRG 65 ==
LOC: EMEROOARM 15:22 → 2NENU 15:22 → SUATTDRO 17:27 → 2NENU 18:07 → SUATTDRO 09-24 12:57
PROVIDERS: ADMIT Family Medicine; ATTEND Family Medicine